=== PATIENT | female | born 1935 | race Caucasian/White ===

== ENCOUNTER 2017-02-05 21:56 | Inpatient (IN) | payer MEDICARE, OTHER ==
[~2017-02-05] VITALS: Ht 165.1 cm; Wt 72.3 kg
[2017-02-05 22:22] LABS: HEMATOCRIT 30.6 % (34.6-47.8); HEMOGLOBIN 9.5 g/dL (11.7-16.4); WHITE BLOOD COUNT 8.9 x10^3/uL (3.4-10)
[2017-02-05 22:35] LABS: ASPARTATE AMINO TRANSFERASE 15 U/L (15-37); BLOOD UREA NITROGEN 20 mg/dL (7-18)
[2017-02-06] MEDS ORDERED: SODIUM CHLORIDE 0.9% 1,000 ML IV SCH (06:26)
[2017-02-06] MEDS ORDERED: ACETAMINOPHEN 325 MG TABLET PO PRN (06:30)
[2017-02-06] MEDS ORDERED: POLYETHYLENE GLYCOL 17 GM PACKET PO PRN (06:30)
[2017-02-06] MEDS ORDERED: ONDANSETRON 2MG/ML, 2ML IVPush PRN (06:30)
[2017-02-06] MEDS ORDERED: DOCUSATE 100 MG CAPSULE PO PRN (06:30)
[2017-02-06] MEDS ORDERED: ENALAPRILAT 1.25 MG/ML, 2ML IVPush PRN (06:30)
[2017-02-06] MEDS ORDERED: BISACODYL 10 MG SUPP PR PRN (06:30)
[2017-02-06] MEDS ORDERED: PROMETHAZINE 25 MG/ML, 1ML IM PRN (06:30)
[2017-02-06] MEDS ORDERED: VANCOMYCIN PER PHARMACY MC PRN (06:30)
[2017-02-06] MEDS ORDERED: PHARMACOKINETIC MONITORING MC PRN (07:00)
[2017-02-06] MEDS ORDERED: PHARMACOKINETIC CONSULTATION MC ONE (07:00)
[2017-02-06] MEDS: VANCOMYCIN 1,400 MG in SODIUM CHLORIDE 0.9% 250 ML IV SCH (08:04)
[2017-02-06] MEDS: POTASSIUM CHLORIDE 20 MEQ TAB.ER.PRT PO SCH ×3 (08:33→17:12)
[2017-02-06] MEDS: LACTOBACILLUS CHEW TABLET PO SCH ×3 (08:33→20:50)
[2017-02-06 09:49] VITALS: BP 154/91
[2017-02-06] MEDS: AMPICILLIN/SULBACTAM 3 GM in SODIUM CHLORIDE 0.9% 100 ML IV SCH ×3 (11:12→23:30)
[2017-02-06 14:17] VITALS: BP 167/91
[2017-02-06] MEDS: ENOXAPARIN 40 MG/0.4 ML SQ SCH (15:00)
[2017-02-06] MEDS: FERROUS GLUCONATE 324 MG TABLET PO SCH (18:37)
[2017-02-06 18:50] VITALS: BP 159/90
[2017-02-06] MEDS ORDERED: HALOPERIDOL 5 MG/ML ONE (21:50)
[2017-02-06] MEDS ORDERED: HALOPERIDOL 5 MG/ML IM ONE (22:00)
[2017-02-07 03:34] VITALS: BP 156/87
[2017-02-07 04:36] LABS: HEMATOCRIT 27.8 % (34.6-47.8); HEMOGLOBIN 8.6 g/dL (11.7-16.4); WHITE BLOOD COUNT 6.6 x10^3/uL (3.4-10)
[2017-02-07 04:44] LABS: ASPARTATE AMINO TRANSFERASE 19 U/L (15-37); BLOOD UREA NITROGEN 18 mg/dL (7-18)
[2017-02-07] MEDS: AMPICILLIN/SULBACTAM 3 GM in SODIUM CHLORIDE 0.9% 100 ML IV SCH (06:28)
[2017-02-07] MEDS: VANCOMYCIN 1,400 MG in SODIUM CHLORIDE 0.9% 250 ML IV SCH (08:22)
[2017-02-07] MEDS: FERROUS GLUCONATE 324 MG TABLET PO SCH ×2 (08:22→17:22)
[2017-02-07] MEDS: LACTOBACILLUS CHEW TABLET PO SCH ×3 (08:22→21:45)
[2017-02-07 08:39] VITALS: BP 160/85
[2017-02-07] MEDS: LEVOTHYROXINE 75 MCG TABLET PO SCH (12:55)
[2017-02-07] MEDS: CEFDINIR 300 MG CAPSULE PO SCH ×2 (12:55→21:45)
[2017-02-07] MEDS: ENOXAPARIN 40 MG/0.4 ML SQ SCH (14:48)
[2017-02-07 15:57] VITALS: BP_SYST 192; BP_SYST 209; BP_DIAS 111; BP_DIAS 129
[2017-02-07] MEDS: LABETALOL 5MG/ML, 20ML IVPush PRN ×2 (16:24→21:55)
[2017-02-07] MEDS ORDERED: HALOPERIDOL 5 MG/ML IM PRN (17:00)
[2017-02-07 20:05] VITALS: BP 191/98
[2017-02-07 22:00] VITALS: BP 180/83
[2017-02-08] VITALS (8 sets, daily range): BP systolic 155–200; BP diastolic 73–108
[2017-02-08] MEDS: LEVOTHYROXINE 75 MCG TABLET PO SCH (06:50)
[2017-02-08] MEDS: FERROUS GLUCONATE 324 MG TABLET PO SCH ×2 (08:58→16:50)
[2017-02-08] MEDS: LACTOBACILLUS CHEW TABLET PO SCH ×3 (08:58→19:46)
[2017-02-08] MEDS: CEFDINIR 300 MG CAPSULE PO SCH ×2 (09:10→19:46)
[2017-02-08] MEDS: LOSARTAN 50MG TABLET PO SCH (11:31)
[2017-02-08] MEDS: LABETALOL 5MG/ML, 20ML IVPush PRN (11:37)
[2017-02-08] MEDS: hydrALAzine 20 MG/ML, 1ML IV PRN (12:09)
[2017-02-08 13:03] LABS: OCCBLD OBC PASS
[2017-02-08] MEDS: ENOXAPARIN 40 MG/0.4 ML SQ SCH (14:30)
[2017-02-08] MEDS: ENALAPRILAT 1.25 MG/ML, 2ML IV PRN (19:48)
[2017-02-09 03:49] VITALS: BP 192/76
[2017-02-09] MEDS: ENALAPRILAT 1.25 MG/ML, 2ML IV PRN (04:19)
[2017-02-09 05:47] VITALS: BP 192/78
[2017-02-09] MEDS ORDERED: LEVOTHYROXINE 25 MCG TABLET PO SCH (06:00)
[2017-02-09 06:08] LABS: HEMATOCRIT 26.9 % (34.6-47.8); HEMOGLOBIN 8.4 g/dL (11.7-16.4); WHITE BLOOD COUNT 4.3 x10^3/uL (3.4-10)
[2017-02-09 06:15] LABS: BLOOD UREA NITROGEN 12 mg/dL (7-18)
[2017-02-09] MEDS: hydrALAzine 20 MG/ML, 1ML IV PRN (06:15)
[2017-02-09] MEDS: FERROUS GLUCONATE 324 MG TABLET PO SCH (09:18)
[2017-02-09] MEDS: CEFDINIR 300 MG CAPSULE PO SCH (09:18)
[2017-02-09] MEDS: LACTOBACILLUS CHEW TABLET PO SCH ×2 (09:19→15:37)
[2017-02-09] MEDS: LOSARTAN 50MG TABLET PO SCH (09:19)
[2017-02-09] MEDS: LABETALOL 5MG/ML, 20ML IVPush PRN ×2 (09:19→16:08)
[2017-02-09 13:49] VITALS: BP 152/88
[2017-02-09] MEDS ORDERED: FERR325T16 PO (14:23)
[2017-02-09] MEDS ORDERED: LEVO25TA2 PO (14:23)
[2017-02-09] MEDS ORDERED: LOSA50TA2 PO (14:23)
[2017-02-09] MEDS: ENOXAPARIN 40 MG/0.4 ML SQ SCH (15:36)
[2017-02-09 15:44] VITALS: BP 178/91
== END 2017-02-09 16:13 | disposition home or self-care (01) | DRG 602 ==
LOC: ED 23:35 → EDIP 02-06 00:47 → 4NOR 02-06 01:17
PROVIDERS: ADMIT Internal Medicine; ATTEND Hospitalist
DX: L03.113 Cellulitis of right upper limb (principal); R53.2 Functional quadriplegia; G92 Toxic encephalopathy; F02.81 Dementia in other diseases classified elsewhere, unspecified severity, with behavioral disturbance; E86.0 Dehydration; G30.9 Alzheimer's disease, unspecified; E87.1 Hypo-osmolality and hyponatremia; W18.30XA Fall on same level, unspecified, initial encounter; N30.90 Cystitis, unspecified without hematuria; Z90.710 Acquired absence of both cervix and uterus; D50.9 Iron deficiency anemia, unspecified; E03.9 Hypothyroidism, unspecified; E87.6 Hypokalemia; I10 Essential (primary) hypertension; K44.9 Diaphragmatic hernia without obstruction or gangrene; M11.269 Other chondrocalcinosis, unspecified knee; M19.90 Unspecified osteoarthritis, unspecified site; M46.92 Unspecified inflammatory spondylopathy, cervical region; M47.812 Spondylosis without myelopathy or radiculopathy, cervical region; M50.30 Other cervical disc degeneration, unspecified cervical region; R62.7 Adult failure to thrive; S16.1XXA Strain of muscle, fascia and tendon at neck level, initial encounter; S80.01XA Contusion of right knee, initial encounter; Z79.899 Other long term (current) drug therapy; Z98.1 Arthrodesis status; Y93.89 Activity, other specified; Y92.89 Other specified places as the place of occurrence of the external cause
CPT/HCPCS: 36415; 70450; 71010; 71260; 72125; 80048; 80053; 81001; 82272; 82306; 82607; 83540; 83550; 83735; 84439; 84443; 84481; 85025; 85045; 87086; 99285; J0295; J1650; J3370; J0360; J1630; J7030; J7050